=== PATIENT | male | born 1985 | race Caucasian/White ===

== ENCOUNTER 2016-11-14 12:56 | Emergency (ER) | payer OTHER, SELFPAY ==
[~2016-11-14] VITALS: Ht 182.9 cm; Wt 113.6 kg
[2016-11-14] MEDS ORDERED: CARB200T98 (13:07)
[2016-11-14] MEDS ORDERED: NS 1,000 ML IV ONE (14:00)
[2016-11-14 14:44] LABS: BASO % 0.3 % (0.0-1.0); EOS # 0.1 K/mm3 (0.0-0.50); EOS % 0.6 % (0.0-3.0); LARGE UNSTAINED CELL # 0.2 K/mm3 (0.0-0.4); LARGE UNSTAINED CELL % 1.3 % (0.0-4.0); LYMPH # 1.2 K/mm3 (1.5-4.5); LYMPH % 8.9 % (24.0-44.0); MEAN CORPUSCULAR HGB CONC 34.4 g/dl (32.0-36.5); MEAN CORPUSCULAR VOLUME 90.2 fl (80.0-96.0); MONO # 0.6 K/mm3 (0.0-0.8); MONO % 5.1 % (0.0-5.0); NEUTROPHILS # 10.1 K/mm3 (1.8-7.7); NEUTROPHILS % 83.8 % (36.0-66.0); PLATELET COUNT, AUTOMATED 254 k/mm3 (150-450); RED CELL DISTRIBUTION WIDTH 12.5 % (11.5-14.5)
--- NOTE | 2016-11-14 14:50 | REP ---
CHEST: Two views. COMPARISON: 11/22/2007 There is no evidence of acute infiltrate. No pleural effusion is seen. The heart is normal in size. The mediastinal silhouette is unremarkable. The visualized osseous structures are intact. IMPRESSION: No acute pulmonary disease. Signed by Milton Sarmiento MD 11/15/2016 05:10 P
--- NOTE | 2016-11-14 15:00 | ECGEPIP ---
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
[2016-11-14 15:06] LABS: ALBUMIN 4.3 GM/DL (3.2-5.2); ALBUMIN/GLOBULIN RATIO 1.39 (1.00-1.93); ALKALINE PHOSPHATASE 74 U/L (45-117); ALT/SGPT 40 U/L (12-78); ANION GAP 6 MEQ/L (8-16); AST/SGOT 16 U/L (15-37); BILIRUBIN,DIRECT < 0.1 MG/DL (0.0-0.2); BILIRUBIN,TOTAL 0.3 MG/DL (0.2-1.0); BLOOD UREA NITROGEN 14 MG/DL (7-18); CARBON DIOXIDE LEVEL 27 MEQ/L (21-32); CHLORIDE LEVEL 108 MEQ/L (98-107); CREATININE FOR GFR 0.88 MG/DL (0.70-1.30); GLOMERULAR FILTRATION RATE > 60.0 (>60); GLUCOSE, FASTING 118 MG/DL (70-105); MAGNESIUM LEVEL 1.7 MG/DL (1.8-2.4); PHOSPHORUS LEVEL 2.5 MG/DL (2.5-4.9); POTASSIUM SERUM 4.3 MEQ/L (3.5-5.1); SODIUM LEVEL 141 MEQ/L (136-145); TOTAL PROTEIN 7.4 GM/DL (6.4-8.2)
[2016-11-14 15:34] LABS: METHADONE URINE NEGATIVE (NEGATIVE)
[2016-11-14] MEDS ORDERED: MAGNESIUM OXIDE 400 MG TAB (MAG-OX) PO ONE (16:00)
[2016-11-14 16:16] VITALS: BP 140/74
== END 2016-11-14 16:22 | disposition home or self-care (01) ==
LOC: M ED 15:14
DX: R55 Syncope and collapse (principal); G40.909 Epilepsy, unspecified, not intractable, without status epilepticus; F17.200 Nicotine dependence, unspecified, uncomplicated; Z79.899 Other long term (current) drug therapy

== ENCOUNTER 2017-02-16 18:58 | Emergency (ER) | payer MEDICAID, OTHER, SELFPAY ==
[~2017-02-16] VITALS: Ht 180.3 cm; Wt 122.7 kg
[~2017-02-16 18:58] MED LIST: CARB200T98
[2017-02-16 20:10] LABS: ANION GAP 16 MEQ/L (8-16); BLOOD UREA NITROGEN 12 MG/DL (7-18); CARBAMAZEPINE (TEGRETOL) LEVEL 1.6 UG/ML (4.0-10.0); CARBON DIOXIDE LEVEL 18 MEQ/L (21-32); CHLORIDE LEVEL 111 MEQ/L (98-107); CREATININE FOR GFR 1.18 MG/DL (0.70-1.30); GLOMERULAR FILTRATION RATE > 60.0 (>60); GLUCOSE, FASTING 114 MG/DL (70-105); MAGNESIUM LEVEL 2.2 MG/DL (1.8-2.4); POTASSIUM SERUM 3.9 MEQ/L (3.5-5.1); SODIUM LEVEL 145 MEQ/L (136-145)
--- NOTE | 2017-02-16 20:10 | REPUSA ---
CT of the head Clinical history: seizure. Comparison: 11/22/2007. Technique: Multiple axial CT images were obtained through the head without administration of contrast . Findings: The ventricles and sulci are symmetric bilaterally. There is no evidence of acute hemorrhag e or infarct. There is no midline shift, mass effect, or extra-axial fluid collection. The osseous st ructures are unremarkable. The visualized paranasal sinuses and mastoid air cells are clear. Impression: Negative study.
[2017-02-16 20:19] LABS: BASO % 0.2 % (0.0-1.0); EOS # 0.2 K/mm3 (0.0-0.50); EOS % 1.5 % (0.0-3.0); LARGE UNSTAINED CELL # 0.2 K/mm3 (0.0-0.4); LARGE UNSTAINED CELL % 1.8 % (0.0-4.0); LYMPH # 2.3 K/mm3 (1.5-4.5); LYMPH % 21.1 % (24.0-44.0); MEAN CORPUSCULAR HGB CONC 35.2 g/dl (32.0-36.5); MEAN CORPUSCULAR VOLUME 90.9 fl (80.0-96.0); MONO # 0.6 K/mm3 (0.0-0.8); MONO % 5.3 % (0.0-5.0); NEUTROPHILS # 7.8 K/mm3 (1.8-7.7); NEUTROPHILS % 70.2 % (36.0-66.0); PLATELET COUNT, AUTOMATED 277 k/mm3 (150-450); RED CELL DISTRIBUTION WIDTH 12.5 % (11.5-14.5); WHITE BLOOD COUNT 11.1 K/mm3 (4.0-10.0)
[2017-02-16 21:41] VITALS: BP 160/79
== END 2017-02-16 22:02 | disposition home or self-care (01) ==
LOC: EDBD 18:58 → M ED 18:58
DX: G40.309 Generalized idiopathic epilepsy and epileptic syndromes, not intractable, without status epilepticus (principal); Z91.14 Patient's other noncompliance with medication regimen; Z79.899 Other long term (current) drug therapy
CPT/HCPCS: 70450; 80048; 80156; 83735; 85025; 99284; G0480

== ENCOUNTER 2018-08-26 14:42 | Emergency (ER) | payer MEDICAID, OTHER ==
[~2018-08-26] VITALS: Ht 177.8 cm; Wt 96.7 kg
[~2018-08-26 14:42] MED LIST changes: -CARB200T98; +CARB200T98 PO
[2018-08-26] MEDS ORDERED: NS 1,000 ML IV ONE (15:15)
[2018-08-26 15:17] LABS: BASO % 0.3 % (0.0-1.0); EOS # 0.2 10^3/uL (0.0-0.50); EOS % 1.9 % (0.0-3.0); HEMATOCRIT 45.7 % (42.0-52.0); HEMOGLOBIN 15.8 g/dl (13.5-17.5); LYMPH # 2.2 10^3/uL (1.5-4.5); LYMPH % 22.6 % (24.0-44.0); MEAN CORPUSCULAR HEMOGLOBIN 31.3 pg (27.0-33.0); MEAN CORPUSCULAR HGB CONC 34.6 g/dl (32.0-36.5); MEAN CORPUSCULAR VOLUME 90.7 fl (80.0-96.0); MONO # 0.9 10^3/uL (0.0-0.8); MONO % 9.7 % (0.0-5.0); NEUTROPHILS # 6.3 10^3/uL (1.8-7.7); NEUTROPHILS % 65.1 % (36.0-66.0); PLATELET COUNT, AUTOMATED 272 10^3/uL (150-450); RED BLOOD COUNT 5.04 10^6/uL (4.30-6.10); WHITE BLOOD COUNT 9.7 10^3/uL (4.0-10.0)
[2018-08-26 15:50] LABS: ALBUMIN 4.4 GM/DL (3.2-5.2); ALT/SGPT 32 U/L (12-78); BILIRUBIN,DIRECT < 0.1 MG/DL (0.0-0.2); BILIRUBIN,TOTAL 0.3 MG/DL (0.2-1.0); BLOOD UREA NITROGEN 18 MG/DL (7-18); CALCIUM LEVEL 9.3 MG/DL (8.5-10.1); CARBAMAZEPINE (TEGRETOL) LEVEL 1.5 UG/ML (4.0-10.0); CARBON DIOXIDE LEVEL 24 MEQ/L (21-32); CHLORIDE LEVEL 106 MEQ/L (98-107); CPK CREATINE PHOSPHOKINASE 285 U/L (39-308); CREATININE FOR GFR 1.25 MG/DL (0.70-1.30); ETHYL ALCOHOL (ETHANOL) < 0.003 % (0.000-0.010); GLOMERULAR FILTRATION RATE > 60.0 (>60); GLUCOSE, FASTING 95 MG/DL (70-100); MB/CK RELATIVE INDEX 1.16 (< OR =4); POTASSIUM SERUM 4.1 MEQ/L (3.5-5.1); SODIUM LEVEL 142 MEQ/L (136-145); TOTAL PROTEIN 7.5 GM/DL (6.4-8.2); TROPONIN I < 0.02 NG/ML (< 0.10)
[2018-08-26] MEDS ORDERED: carBAMazepine XR 200 MG TAB PO ONE (16:45)
[2018-08-26] MEDS ORDERED: carBAMazepine 200 MG TAB PO ONE (16:45)
[2018-08-26 16:55] VITALS: BP 172/81
== END 2018-08-26 16:55 | disposition home or self-care (01) ==
LOC: M ED 14:42
DX: G40.309 Generalized idiopathic epilepsy and epileptic syndromes, not intractable, without status epilepticus (principal)
CPT/HCPCS: 80048; 80076; 80156; 82550; 82553; 83605; 84443; 85025; 93041; 94760; 96360; 99284; G0480

== ENCOUNTER 2018-10-30 07:26 | Emergency (ER) | payer OTHER ==
[2018-10-30] MEDS ORDERED: CARB20TAXR PO (07:37)
[2018-10-30] MEDS ORDERED: CARB200C4 PO (07:37)
[2018-10-30] MEDS ORDERED: carBAMazepine XR 200 MG TAB PO ONE (07:45)
--- NOTE | 2018-10-30 08:06 | REPVR ---
EXAM: CT Head Without Contrast EXAM DATE/TIME: 10/30/2018 7:36 AM CLINICAL HISTORY: 33 years old, male; Injury or trauma; Injury history: Post seizure; Initial encounter; Blunt trauma (contusions or hematomas); Additional info: Head injury post sz TECHNIQUE: Imaging protocol: Axial computed tomography images of the head without contrast. Radiation optimization: All CT scans at this facility use at least one of these dose optimization techniques: automated exposure control; mA and/or kV adjustment per patient size (includes targeted exams where dose is matched to clinical indication); or iterative reconstruction. COMPARISON: CT Head without contrast 02/16/2017 7:54 PM FINDINGS: Brain: The cortical/white matter interfaces are preserved throughout the brain. There is no evidence of intracranial hemorrhage. No parenchymal mass lesions are identified. Ventricles: The ventricular system is normal in size and configuration. Bones/joints: No acute fractures of the skull are identified. Sinuses: The visualized paranasal sinuses are clear. Mastoid air cells: The mastoid air cells are clear. Soft tissues: Mild superficial soft tissue infiltration is seen in the posterior midline, probably a small soft tissue contusion/hematoma. IMPRESSION: 1. Normal appearance of the brain. 2. Soft tissue infiltration in the posterior midline, likely a small superficial hematoma/contusion. Electronically signed by: Maya Little On 10/30/2018 08:05:55 AM
--- NOTE | 2018-10-30 08:11 | REPVR ---
EXAM: CT Cervical Spine Without Contrast EXAM DATE/TIME: 10/30/2018 7:36 AM CLINICAL HISTORY: 33 years old, male; Injury or trauma; Injury history: Post seizure; Initial encounter; Blunt trauma; Additional info: Head injury post sz TECHNIQUE: Imaging protocol: Axial computed tomography images of the cervical spine without contrast. Coronal and sagittal reformatted images were created and reviewed. Radiation optimization: All CT scans at this facility use at least one of these dose optimization techniques: automated exposure control; mA and/or kV adjustment per patient size (includes targeted exams where dose is matched to clinical indication); or iterative reconstruction. COMPARISON: No relevant prior studies available. FINDINGS: Vertebrae: There is a minimal rightward convex curvature of the cervical spine. No subluxations are identified. No acute fractures are seen. Small endplate spurs and mild uncovertebral ridging are present at multiple levels in the cervical spine. Discs/Spinal canal/Neural foramina: No significant spinal canal stenosis is seen. Prevertebral Space: The prevertebral soft tissues appear normal. Soft tissues: The paraspinous soft tissues appear unremarkable. Lungs: The visualized lungs are grossly clear. IMPRESSION: 1. No fractures or subluxations identified. 2. Mild degenerative changes. No significant spinal canal stenosis. Electronically signed by: Maya Little On 10/30/2018 08:11:07 AM
[2018-10-30] MEDS ORDERED: ADACEL/BOOSTRIX VACCINE (DIPHTH/PERTUSS/ACELL/TETANUS)0.5ML SYR (90715) IM ONE (08:15)
[2018-10-30] MEDS ORDERED: NS 1,000 ML IV ONE (08:15)
--- NOTE | 2018-10-30 08:21 | REP ---
LEFT ELBOW, FOUR VIEWS: There is no evidence of an acute fracture, dislocation or intrinsic bone disease. IMPRESSION: No fracture or dislocation. Electronically Signed by Milton Sarmiento MD 11/03/2018 01:39 P
--- NOTE | 2018-10-30 08:21 | REP ---
LEFT SHOULDER, THREE VIEWS: SHOULDER: There is no evidence of an acute fracture, dislocation or intrinsic bone disease. IMPRESSION: No fracture or dislocation. Electronically Signed by Milton Sarmiento MD 11/03/2018 01:39 P
[2018-10-30 08:23] LABS: BASO % 0.3 % (0.0-1.0); EOS % 0.3 % (0.0-3.0); HEMATOCRIT 45.1 % (42.0-52.0); HEMOGLOBIN 15.5 g/dl (13.5-17.5); LYMPH # 1.1 10^3/uL (1.5-4.5); LYMPH % 9.4 % (24.0-44.0); MEAN CORPUSCULAR HEMOGLOBIN 31.4 pg (27.0-33.0); MEAN CORPUSCULAR HGB CONC 34.4 g/dl (32.0-36.5); MEAN CORPUSCULAR VOLUME 91.5 fl (80.0-96.0); MONO # 0.9 10^3/uL (0.0-0.8); NEUTROPHILS % 82.7 % (36.0-66.0); PLATELET COUNT, AUTOMATED 260 10^3/uL (150-450); RED BLOOD COUNT 4.93 10^6/uL (4.30-6.10); WHITE BLOOD COUNT 12.1 10^3/uL (4.0-10.0)
--- NOTE | 2018-10-30 08:28 | REP ---
LEFT HAND, FOUR VIEWS: There is no evidence of an acute fracture, dislocation or intrinsic bone disease. IMPRESSION: No fracture or dislocation. Electronically Signed by Milton Sarmiento MD 11/03/2018 01:40 P
[2018-10-30 08:51] LABS: BLOOD UREA NITROGEN 18 MG/DL (7-18); CALCIUM LEVEL 9.2 MG/DL (8.5-10.1); CARBAMAZEPINE (TEGRETOL) LEVEL 4.9 UG/ML (4.0-10.0); CARBON DIOXIDE LEVEL 26 MEQ/L (21-32); CHLORIDE LEVEL 106 MEQ/L (98-107); CREATININE FOR GFR 0.89 MG/DL (0.70-1.30); GLOMERULAR FILTRATION RATE > 60.0 (>60); GLUCOSE, FASTING 94 MG/DL (70-100); POTASSIUM SERUM 4.5 MEQ/L (3.5-5.1); SODIUM LEVEL 138 MEQ/L (136-145)
[2018-10-30] MEDS ORDERED: IBUPROFEN 600 MG TAB PO ONE (09:15)
[2018-10-30 09:30] VITALS: BP 119/72
== END 2018-10-30 10:21 | disposition home or self-care (01) ==
LOC: M ED 07:26 → EDBD 07:26 → M ED 10:21
DX: R56.9 Unspecified convulsions (principal); S09.90XA Unspecified injury of head, initial encounter; S40.012A Contusion of left shoulder, initial encounter; S60.222A Contusion of left hand, initial encounter; S40.022A Contusion of left upper arm, initial encounter; X58.XXXA Exposure to other specified factors, initial encounter; Y92.9 Unspecified place or not applicable; Y93.9 Activity, unspecified; Y99.9 Unspecified external cause status; R55 Syncope and collapse; R25.1 Tremor, unspecified; Z87.820 Personal history of traumatic brain injury; Z72.0 Tobacco use; Z79.899 Other long term (current) drug therapy

== ENCOUNTER 2019-07-16 04:15 | Inpatient (IN) | payer OTHER ==
[~2019-07-16] VITALS: Ht 180.3 cm; Wt 100.8 kg
[~2019-07-16 04:15] MED LIST changes: +CARB200C4 PO; +CARB20TAXR PO
[2019-07-16] MEDS ORDERED: carBAMazepine 200 MG TAB PO ONE ×2 (04:30→06:00)
[2019-07-16] MEDS ORDERED: LEVE500T5 PO (04:55)
[2019-07-16 05:07] LABS: BASO % 0.2 % (0.0-1.0); HEMOGLOBIN 16.7 g/dl (13.5-17.5); LYMPH # 0.8 10^3/uL (1.5-5.0); LYMPH % 3.1 % (24.0-44.0); MEAN CORPUSCULAR HEMOGLOBIN 29.9 pg (27.0-33.0); MEAN CORPUSCULAR HGB CONC 32.7 g/dl (32.0-36.5); MEAN CORPUSCULAR VOLUME 91.2 fl (80.0-96.0); MONO # 1.7 10^3/uL (0.0-0.8); MONO % 6.9 % (0.0-5.0); NEUTROPHILS # 22.6 10^3/uL (1.5-8.5); NEUTROPHILS % 89.4 % (36.0-66.0); PLATELET COUNT, AUTOMATED 296 10^3/uL (150-450); RED BLOOD COUNT 5.59 10^6/uL (4.30-6.10); WHITE BLOOD COUNT 25.2 10^3/uL (4.0-10.0)
[2019-07-16] MEDS ORDERED: levETIRAcetam INJection 750 MG in D5W 100 ML IV ONE (05:45)
[2019-07-16 05:49] LABS: ALBUMIN 4.7 GM/DL (3.2-5.2); ALT/SGPT 64 U/L (12-78); BILIRUBIN,DIRECT 0.1 MG/DL (0.0-0.2); BILIRUBIN,TOTAL 0.3 MG/DL (0.2-1.0); BLOOD UREA NITROGEN 17 MG/DL (7-18); CARBAMAZEPINE (TEGRETOL) LEVEL 2.3 UG/ML (4.0-10.0); CARBON DIOXIDE LEVEL 30 MEQ/L (21-32); CHLORIDE LEVEL 100 MEQ/L (98-107); CREATININE FOR GFR 1.22 MG/DL (0.70-1.30); GLOMERULAR FILTRATION RATE > 60.0 (>60); GLUCOSE, FASTING 161 MG/DL (70-100); SODIUM LEVEL 138 MEQ/L (136-145); TOTAL PROTEIN 8.1 GM/DL (6.4-8.2)
[2019-07-16] MEDS ORDERED: ACETAMINOPHEN 325 MG SUPP PR ONE (06:45)
[2019-07-16] MEDS ORDERED: ACETAMINOPHEN 650 MG SUPP PR ONE (06:45)
[2019-07-16 07:01] LABS: CPK CREATINE PHOSPHOKINASE 412 U/L (39-308)
--- NOTE | 2019-07-16 07:09 | REPVR ---
PROCEDURE INFORMATION: Exam: CT Head Without Contrast Exam date and time: 07/16/2019 6:41 AM Age: 33 years old Clinical indication: Altered mental status/memory loss; Confusion or disorientation; Patient HX: Seizure; Additional info: AMS TECHNIQUE: Imaging protocol: Computed tomography of the head without contrast. Radiation optimization: All CT scans at this facility use at least one of these dose optimization techniques: automated exposure control; mA and/or kV adjustment per patient size (includes targeted exams where dose is matched to clinical indication); or iterative reconstruction. COMPARISON: CT Head without contrast 10/30/2018 7:39 AM FINDINGS: Brain: Normal. No hemorrhage. Unremarkable white matter. No mass effect. Ventricles: Normal. No ventriculomegaly. Bones/joints: Unremarkable. No acute fracture. Sinuses: Visualized sinuses are unremarkable. No fluid levels. Mastoid air cells: Visualized mastoid air cells are well aerated. Soft tissues: Unremarkable. IMPRESSION: No acute intracranial abnormality. Electronically signed by: Héctor Rey On 07/16/2019 07:09:15 AM
[2019-07-16] MEDS ORDERED: ACETAMINOPHEN 325 MG TAB As Ordered ONE (07:13)
[2019-07-16] MEDS: NS 1,000 ML IV ONE ×2 (07:22→07:32)
[2019-07-16] MEDS ORDERED: ONDANSETRON 4MG/2ML VIAL (J2405) As Ordered ONE (07:26)
[2019-07-16] MEDS ORDERED: ACETAMINOPHEN 325 MG TAB PO ONE (07:30)
[2019-07-16] MEDS ORDERED: ONDANSETRON 4MG/2ML VIAL (J2405) IV ONE (07:30)
[2019-07-16] MEDS ORDERED: NS 1,000 ML IV ONE ×2 (07:30→08:30)
--- NOTE | 2019-07-16 08:07 | REP ---
Portable chest x-ray: Single view. History: Fever. Comparison study: November 14 1016. Findings: Monitoring electrodes are seen overlying the chest. Lungs are symmetrically aerated and clear. Pleural angles are sharp. Heart size is normal. Pulmonary vasculature is not increased. No significant bony abnormality. Impression: No active disease. Electronically Signed by Levy Bridges MD 07/16/2019 07:59 A
[2019-07-16] MEDS ORDERED: IBUPROFEN 800 MG TAB PO ONE (08:15)
[2019-07-16 08:41] LABS: INFLUENZA A AMPLIFICATION NEGATIVE (NEGATIVE); INFLUENZA B AMPLIFICATION NEGATIVE (NEGATIVE)
[2019-07-16 10:52] LABS: BASO % 0.1 % (0.0-1.0); HEMATOCRIT 45.4 % (42.0-52.0); HEMOGLOBIN 15.5 g/dl (13.5-17.5); LYMPH # 0.8 10^3/uL (1.5-5.0); LYMPH % 3.9 % (24.0-44.0); MEAN CORPUSCULAR HEMOGLOBIN 31.4 pg (27.0-33.0); MEAN CORPUSCULAR HGB CONC 34.1 g/dl (32.0-36.5); MEAN CORPUSCULAR VOLUME 92.1 fl (80.0-96.0); MONO # 1.5 10^3/uL (0.0-0.8); MONO % 7.3 % (0.0-5.0); NEUTROPHILS # 17.9 10^3/uL (1.5-8.5); NEUTROPHILS % 88.1 % (36.0-66.0); PLATELET COUNT, AUTOMATED 240 10^3/uL (150-450); RED BLOOD COUNT 4.93 10^6/uL (4.30-6.10); WHITE BLOOD COUNT 20.3 10^3/uL (4.0-10.0)
[2019-07-16] MEDS ORDERED: MAGN50TA PO (13:10)
[2019-07-16] MEDS ORDERED: KEPP1TAB PO (13:10)
--- NOTE | 2019-07-16 14:22 | HPEPDOC ---
[facility] Medical History & Physical Date of Admission Jul 16, 2019 Date of Service: Jul 16, 2019 Attending Physician: CONCETTA SUE MD History and Physical CHIEF COMPLAINT: Seizure HISTORY OF PRESENT ILLNESS: 33-year-old male with past medical history of seizure disorder, presents from home with seizures 2. Patient is alert and oriented 3, but unable to provide any history at this time as he reportedly does not remember anything. Information obtained from ED staff and go from a bedside, reportedly patient was well up until noon yesterday. Patient's girlfriend returned at 8 PM and found the patient confused and had urinated on himself. She then witnessed the patient having a grand mal seizure at 3 AM and brought him to the hospital. Patient has remained confused about his current situation since presented to the emergency department. Patient is resting comfortably in bed, without any complaints, denies any headache, dizziness, vision disturbance, shortness of breath, chest pain, nausea, vomiting, abdominal pain, diarrhea, myalgias or arthralgias. Patient's workup is consistent with medication noncompliance as carbamazepine levels are low. Reportedly patient's last seizure was in February of last year, saw his neurologist in March and Keppra was added to his regimen, had a normal MRI and EEG at that time. 10 point review of system is negative except for above PAST MEDICAL HISTORY: 1. Seizure disorder. PAST SURGICAL HISTORY: 1. None. SOCIAL HISTORY: Previous smoker. Denies alcohol use. Denies drug use FAMILY HISTORY: Positive for heart disease ALLERGIES: Please see below. HOME MEDICATIONS: Please see below. PHYSICAL EXAMINATION: VITAL SIGNS: Please see below. GENERAL: No distress HEENT: Normocephalic, atraumatic, moist mucous membranes NECK: Supple CARDIOVASCULAR EXAMINATION: S1, S2, no murmurs RESPIRATORY EXAMINATION: Clear to auscultation, no wheezing ABDOMINAL EXAMINATION: Soft, nontender, nondistended, positive bowel sounds EXTREMITIES: Range of motion intact SKIN: No rash NEUROLOGICAL EXAMINATION: Alert and oriented 3, no focal deficits PSYCHIATRIC EXAMINATION: Calm and cooperative LABORATORY DATA: See below. IMAGING: CT head negative for acute pathology MICROBIOLOGY: Please see below. ASSESSMENT: 33-year-old male with past medical history of seizure disorder, presents with seizure, likely due to noncompliance. . PLAN: 1. Seizure. Carbamazepine level is low, Keppra levels pending, received carbamazepine and Keppra in the ED, will continue these meds. Patient spiked a fever and has elevated white count in the ED, likely related to seizure, no clinical or other signs suggestive of ongoing infection. Blood cultures drawn, pro-calcitonin ordered, hold off on antibiotics for now. Admitting for observation overnight as family believes patient's not at his baseline. Vital Signs Vital Signs Date Time Temp Pulse Resp B/P (MAP) Pulse Ox O2 Delivery O2 Flow Rate FiO2 07/16/19 13:38 98.6 75 92 120/54 (76) 19 Room Air Laboratory Data Labs 24H Laboratory Tests 2 07/16/19 04:20: Lactic Acid Level 3.6*H 07/16/19 04:52: Immature Granulocyte % (Auto) 0.4, Neutrophils (%) (Auto) 89.4H, Lymphocytes (%) (Auto) 3.1L, Monocytes (%) (Auto) 6.9H, Eosinophils (%) (Auto) 0.0, Basophils (%) (Auto) 0.2, Neutrophils # (Auto) 22.6H, Lymphocytes # (Auto) 0.8L, Monocytes # (Auto) 1.7H, Eosinophils # (Auto) 0.0, Basophils # (Auto) 0.0, Nucleated Red Blood Cells % (auto) 0.0, Anion Gap 8, Glomerular Filtration Rate > 60.0, Calcium Level 9.0, Total Bilirubin 0.3, Direct Bilirubin 0.1, Aspartate Amino Transf (AST/SGOT) 27, Alanine Aminotransferase (ALT/SGPT) 64, Alkaline Phosphatase 89, Total Creatine Kinase 412H, Total Protein 8.1, Albumin 4.7, Albumin/Globulin Ratio 1.38, Thyroid Stimulating Hormone (TSH) 1.200, Carbamazepine (Tegretol) Level 2.3L 07/16/19 05:11: Bedside Glucose (Misc Panel) 187H 07/16/19 05:14: Bedside Glucose (Misc Panel) 178H 07/16/19 07:47: Influenza Type A (RT-PCR) NEGATIVE, Influenza Type B (RT-PCR) NEGATIVE 07/16/19 10:36: Immature Granulocyte % (Auto) 0.6, Neutrophils (%) (Auto) 88.1H, Lymphocytes (%) (Auto) 3.9L, Monocytes (%) (Auto) 7.3H, Eosinophils (%) (Auto) 0.0, Basophils (%) (Auto) 0.1, Neutrophils # (Auto) 17.9H, Lymphocytes # (Auto) 0.8L, Monocytes # (Auto) 1.5H, Eosinophils # (Auto) 0.0, Basophils # (Auto) 0.0, Nucleated Red Blood Cells % (auto) 0.0, Lactic Acid Followup at 4 Hours 1.1 07/16/19 13:55: CBC/BMP Laboratory Tests 07/16/19 04:52 07/16/19 10:36 Microbiology Microbiology 07/16/19 Blood Culture, Received Pending 07/16/19 Blood Culture, Received Pending Home Medications Scheduled Carbamazepine (Carbamazepine ER) 200 Mg Cpmp.12hr, 400 MG PO QAM Carbamazepine (Carbamazepine ER) 200 Mg Tab.er.12h, 600 MG PO QHS Levetiracetam (Keppra) 500 Mg Tablet, 1,000 MG PO QHS levETIRAcetam (levETIRAcetam) 500 Mg Tablet, 750 MG PO QAM Scheduled PRN Magnesium Gluconate (Mag-G) 27 Mg Tablet, 1,500 MG PO DAILY PRN for HEADACHE Allergies Coded Allergies: No Known Allergies (Verified , 11/30/02) A-FIB/CHADSVASC A-FIB History Current/History of A-Fib/PAF?: No CONCETTA SUE MD Jul 16, 2019 14:22
[2019-07-16 14:42] LABS: ACETAMINOPHEN LEVEL < 2.0 UG/ML (10.0-30.0); ETHYL ALCOHOL (ETHANOL) < 0.003 % (0.000-0.010); SALICYLATE LEVEL < 1.7 MG/DL (5.0-30.0)
[2019-07-16 14:57] LABS: OSMOLALITY SERUM 292 MOSM/KG (275-295)
[2019-07-16] MEDS: NS 1,000 ML IV SCH (15:58)
[2019-07-16 16:00] VITALS: BP 115/65
[2019-07-16 16:10] LABS: AMPHETAMINES LEVEL URINE NEGATIVE (NEGATIVE); BARBITURATES URINE NEGATIVE (NEGATIVE); BENZODIAZEPINES URINE NEGATIVE (NEGATIVE); CANNABINOIDS URINE POSITIVE (NEGATIVE); COCAINE METABOLITE URINE NEGATIVE (NEGATIVE); METHADONE URINE NEGATIVE (NEGATIVE); OPIATES URINE NEGATIVE (NEGATIVE); PHENCYCLIDINE URINE NEGATIVE (NEGATIVE)
--- NOTE | 2019-07-16 18:36 | ECGEPIP ---
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
[2019-07-16] MEDS: carBAMazepine XR 200 MG TAB PO SCH (20:11)
[2019-07-16] MEDS: levETIRAcetam 250MG TABLET (KEPPRA) PO SCH (20:12)
[2019-07-16 20:13] VITALS: BP 142/75
[2019-07-17] MEDS: NS 1,000 ML IV SCH ×3 (01:53→21:21)
[2019-07-17 06:00] VITALS: BP 139/73
[2019-07-17 08:09] LABS: HEMATOCRIT 44.9 % (42.0-52.0); MEAN CORPUSCULAR HEMOGLOBIN 30.5 pg (27.0-33.0); MEAN CORPUSCULAR HGB CONC 33.4 g/dl (32.0-36.5); MEAN CORPUSCULAR VOLUME 91.3 fl (80.0-96.0); PLATELET COUNT, AUTOMATED 236 10^3/uL (150-450); RED BLOOD COUNT 4.92 10^6/uL (4.30-6.10); WHITE BLOOD COUNT 24.1 10^3/uL (4.0-10.0)
[2019-07-17 08:37] LABS: ALBUMIN 3.8 GM/DL (3.2-5.2); ALT/SGPT 37 U/L (12-78); BILIRUBIN,TOTAL 0.5 MG/DL (0.2-1.0); BLOOD UREA NITROGEN 13 MG/DL (7-18); CALCIUM LEVEL 8.5 MG/DL (8.5-10.1); CARBON DIOXIDE LEVEL 30 MEQ/L (21-32); CHLORIDE LEVEL 105 MEQ/L (98-107); CREATININE FOR GFR 0.76 MG/DL (0.70-1.30); GLOMERULAR FILTRATION RATE > 60.0 (>60); GLUCOSE, FASTING 130 MG/DL (70-100); MAGNESIUM LEVEL 1.7 MG/DL (1.8-2.4); POTASSIUM SERUM 3.6 MEQ/L (3.5-5.1); SODIUM LEVEL 140 MEQ/L (136-145); TOTAL PROTEIN 6.9 GM/DL (6.4-8.2)
[2019-07-17] MEDS: levETIRAcetam 250MG TABLET (KEPPRA) PO SCH ×2 (08:59→21:21)
[2019-07-17] MEDS: carBAMazepine XR 200 MG TAB PO SCH ×2 (09:00→21:21)
[2019-07-17] MEDS ORDERED: cefTRIAXone SOD 2 GM in D5W MINI-BAG PLUS 50 ML IV SCH (09:00)
[2019-07-17] MEDS ORDERED: POTASSIUM CHLORIDE 10 MEQ SR TABLET PO ONE (09:45)
--- NOTE | 2019-07-17 10:59 | PHACANCOPD ---
PHARMACY VANCOMYCIN DOSING Pt Demographics Demographics Patient Age:33 , Weight:100.800 , Gender: male Adjusted Body Weight Date: 07/17/19, Adjusted Body Weight: Kg Events Past 24 Hours Events Past 24 Hours: YES: Fever, Elevation in WBC Vancomycin Vancomycin Target Ranges: 15-20 mcg/ml Vancomycin Load Y/N: Yes Load Dose Date Time Vancomycin Load Dose: 2GM Date: 07/17/19 Time: 1100 Vancomycin Dose Date: 07/17/19. Current Vancomycin Dose: [1 GM IV Q6H] Intermittent Dosing?: No Labs Labs Item Value Date Time White Blood Count 25.2 10^3/uL H 07/16/19 0452 White Blood Count 20.3 10^3/uL H 07/16/19 1036 White Blood Count 24.1 10^3/uL H 07/17/19 0747 Vital Signs Label Value Date Time Patient Temperature 100.5 degrees F 07/16/19 1600 Temperature Source Oral 07/16/191599 Patient Temperature 99.6 degrees F 07/16/192012 Temperature Source Oral 07/16/192012 Patient Temperature 99.7 degrees F 07/17/19 0600 Temperature Source Oral 07/17/19 0600 Micro Microbiology 07/16/19 Blood Culture - Preliminary, Resulted No growth after 24 hours . All specim... 07/16/19 Respiratory Virus Panel (PCR) (BATOOL) - Final, Complete 07/16/19 Blood Culture - Preliminary, Resulted Creatinine Clearance Date:07/17/19. Creatinine Clearance: . Assessment and Plan Maintaining Current Dose?: Yes Reason for dose change: No Dose Change Pharmacist Note Pharmacist Note Date: 07/17/19. Pharmacist note: Pharmacy consulted for dosing of Vancomycin for preliminary positive blood culture with a goal trough of 15-20 mcg/ml. The patient has no history of MRSA or Vanco here at [facility]. Patient has an elevated white count and was febrile yesterday. He is also being treated with Rocephin 2 GM q24h. We'll load him with 2 GM and follow with 1 GM IV q6h. Pharmacy will continue to monitor and make adjustments as needed. ERICA PEPPER PHARMACY Jul 17, 2019 10:59
[2019-07-17] MEDS ORDERED: VANCOMYCIN HCL 1,000 MG, VIAL MATE ADAPTER 1 EACH in D5W 250 ML IV ONE ×2 (11:00→12:00)
[2019-07-17] MEDS: MAG SULF 1GM/100ML (MAG RUN) 1 GM in IV 1 EA IV SCH ×2 (11:45→12:53)
[2019-07-17] MEDS: cefTRIAXone SOD 2 GM in D5W MINI-BAG PLUS 50 ML IV SCH (11:45)
[2019-07-17 14:00] VITALS: BP 141/90
[2019-07-17] MEDS: VANCOMYCIN HCL 1,000 MG, VIAL MATE ADAPTER 1 EACH in D5W 250 ML IV SCH ×2 (17:46→23:18)
--- NOTE | 2019-07-17 20:54 | IPNPDOC ---
Date Seen The patient was seen on 07/17/19. Progress Note HISTORY OF PRESENT ILLNESS: 33-year-old male with past medical history of seizure disorder, presents from home with seizures 2. Patient is alert and oriented 3, but unable to provide any history at this time as he reportedly does not remember anything. Information obtained from ED staff and go from a bedside, reportedly patient was well up until noon yesterday. Patient's girlfriend returned at 8 PM and found the patient confused and had urinated on himself. She then witnessed the patient having a grand mal seizure at 3 AM and brought him to the hospital. Patient has remained confused about his current situation since presented to the emergency department. Patient is resting comfortably in bed, without any complaints, denies any headache, dizziness, vision disturbance, shortness of breath, chest pain, nausea, vomiting, abdominal pain, diarrhea, myalgias or arthralgias. Patient's workup is consistent with medication noncompliance as carbamazepine levels are low. Reportedly patient's last seizure was in February of last year, saw his neurologist in March and Keppra was added to his regimen, had a normal MRI and EEG at that time. 07/17/19 Patient more alert and responsive in the morning, reportedly is having issues with short term memory, otherwise fully oriented and able to answer detailed/tertiary questions appropriately along with following commands. Febrile overnight, 1/2 cultures growing G+ cocci. No other complaints, denies SOB, CP, N/V or abdominal pain. Patient is having watery diarrhea. 10 point review of system is negative except for above PAST MEDICAL HISTORY: 1. Seizure disorder. PAST SURGICAL HISTORY: 1. None. SOCIAL HISTORY: Previous smoker. Denies alcohol use. Denies drug use FAMILY HISTORY: Positive for heart disease ALLERGIES: Please see below. HOME MEDICATIONS: Please see below. PHYSICAL EXAMINATION: VITAL SIGNS: Please see below. GENERAL: No distress HEENT: Normocephalic, atraumatic, moist mucous membranes NECK: Supple CARDIOVASCULAR EXAMINATION: S1, S2, no murmurs RESPIRATORY EXAMINATION: Clear to auscultation, no wheezing ABDOMINAL EXAMINATION: Soft, nontender, nondistended, positive bowel sounds EXTREMITIES: Range of motion intact SKIN: No rash NEUROLOGICAL EXAMINATION: Alert and oriented 3, no focal deficits PSYCHIATRIC EXAMINATION: Calm and cooperative LABORATORY DATA: See below. IMAGING: CT head negative for acute pathology MICROBIOLOGY: Please see below. ASSESSMENT: 33-year-old male with past medical history of seizure disorder, presents with seizure, likely due to noncompliance. PLAN: 1. Seizure. Carbamazepine level is low, no objective finding suggestive of ongoing active neurological issue, continue Keppra & Carbamazepine. Febrile, leukocytosis, having diarrhea & 1/2 blood cultures growing G+ cocci (?contamination), empiric Vanc/Ceftriaxone, TTE, repeat cultures tomorrow, GI panel. VS, I&O, 24H, Fishbone Vital Signs/I&O Vital Signs Date Time Temp Pulse Resp B/P (MAP) Pulse Ox O2 Delivery O2 Flow Rate FiO2 07/17/19 14:00 98.7 74 26 141/90 (107) 98 Room Air I&O- Last 24 Hours up to 6 AM 07/17/19 06:00 Intake Total 3270 ml Output Total 600 ml Balance 2670 ml Laboratory Data 24H LABS Laboratory Tests 2 07/17/19 07:47: Nucleated Red Blood Cells % (auto) 0.0, Anion Gap 5L, Glomerular Filtration Rate > 60.0, Calcium Level 8.5, Magnesium Level 1.7L, Total Bilirubin 0.5#, Aspartate Amino Transf (AST/SGOT) 15, Alanine Aminotransferase (ALT/SGPT) 37, Alkaline Phosphatase 68, Total Protein 6.9, Albumin 3.8, Albumin/Globulin Ratio 1.23 CBC/BMP Laboratory Tests 07/17/19 07:47 Microbiology Microbiology 07/16/19 Blood Culture - Preliminary, Resulted No growth after 24 hours . All specim... 07/16/19 Respiratory Virus Panel (PCR) (BATOOL) - Final, Complete 07/16/19 Blood Culture - Preliminary, Resulted CONCETTA SUE MD Jul 17, 2019 20:54
[2019-07-17 22:00] VITALS: BP 116/58
[2019-07-18] MEDS: VANCOMYCIN HCL 1,000 MG, VIAL MATE ADAPTER 1 EACH in D5W 250 ML IV SCH ×4 (05:08→22:33)
[2019-07-18 06:00] VITALS: BP 133/78
[2019-07-18 08:14] LABS: HEMATOCRIT 40.9 % (42.0-52.0); MEAN CORPUSCULAR HEMOGLOBIN 31.3 pg (27.0-33.0); MEAN CORPUSCULAR HGB CONC 34.2 g/dl (32.0-36.5); MEAN CORPUSCULAR VOLUME 91.5 fl (80.0-96.0); PLATELET COUNT, AUTOMATED 231 10^3/uL (150-450); RED BLOOD COUNT 4.47 10^6/uL (4.30-6.10); WHITE BLOOD COUNT 19.5 10^3/uL (4.0-10.0)
[2019-07-18 08:32] LABS: ALBUMIN 3.3 GM/DL (3.2-5.2); ALT/SGPT 31 U/L (12-78); BILIRUBIN,TOTAL 0.6 MG/DL (0.2-1.0); BLOOD UREA NITROGEN 10 MG/DL (7-18); CALCIUM LEVEL 8.2 MG/DL (8.5-10.1); CARBON DIOXIDE LEVEL 28 MEQ/L (21-32); CHLORIDE LEVEL 106 MEQ/L (98-107); CREATININE FOR GFR 0.77 MG/DL (0.70-1.30); GLOMERULAR FILTRATION RATE > 60.0 (>60); GLUCOSE, FASTING 131 MG/DL (70-100); PHOSPHORUS LEVEL 1.6 MG/DL (2.5-4.9); POTASSIUM SERUM 3.4 MEQ/L (3.5-5.1); SODIUM LEVEL 138 MEQ/L (136-145); TOTAL PROTEIN 6.3 GM/DL (6.4-8.2)
[2019-07-18] MEDS ORDERED: INFLUENZA QUADRIVALENT PF VACCINE 0.5ML SYRINGE (90686) IM ONE (09:00)
[2019-07-18] MEDS: levETIRAcetam 250MG TABLET (KEPPRA) PO SCH ×2 (10:35→20:55)
[2019-07-18] MEDS: cefTRIAXone SOD 2 GM in D5W MINI-BAG PLUS 50 ML IV SCH (10:35)
[2019-07-18] MEDS: carBAMazepine XR 200 MG TAB PO SCH ×2 (10:35→20:56)
[2019-07-18] MEDS: NS 1,000 ML IV SCH (10:35)
[2019-07-18] MEDS ORDERED: POTASSIUM CHLORIDE 10 MEQ SR TABLET PO ONE (13:00)
[2019-07-18 14:00] VITALS: BP 128/78
[2019-07-18] MEDS ORDERED: ACETAMINOPHEN TAB 650MG DOSE (2X325MG) PO PRN (14:45)
[2019-07-18] MEDS ORDERED: POTASSIUM PHOSPHATE INJ 30 MMOL in D5W 500 ML IV ONE (15:00)
--- NOTE | 2019-07-18 15:00 | ECHO ---
DATE OF PROCEDURE: 07/17/2019 DATE OF : 1985 AGE: 33 REFERRING PROVIDER: Dr. Castillo PATIENT LOCATION: Room 5145 REASON FOR THE ECHOCARDIOGRAM: Back pain. 2D MEASUREMENTS: IVS: 1.1 cm LV: 5.2 cm LVPW: 1.1 cm LA: 3.8 cm Aorta: 3.0 cm IVC: 2.1 cm DOPPLER MEASUREMENTS: Peak velocity across the aortic valve: 1.5 m/s Peak velocity across the LVOT: 0.97 m/s Peak gradient across the aortic valve: 9 mmHg Mean gradient across the aortic valve: 4 mmHg Mitral E: 0.94, Mitral A: 0.46 with a ratio of 2.0 2D COMMENTS: 1. Normal left ventricular size, wall thickness. Left ventricular systolic function is hyperdynamic with an estimated global left ventricular systolic ejection fraction is 65-70%. 2. Normal left atrium. Normal right atrium and right ventricle. 3. Normal aortic root. 4. No pericardial effusion seen. 5. The aortic valve, the mitral valve, the tricuspid valve and the pulmonic valve appear to be normal. The proximal pulmonary artery branches also appear to be normal in size. 7. The inferior vena cava was mildly enlarged. Central venous pressure is mildly elevated. DOPPLER: Trace tricuspid regurgitation and trace pulmonic regurgitation detected. Pulmonary artery systolic pressure is most likely normal. IMPRESSION: 1. Normal global left ventricular systolic function with a hyperdynamic left ventricle. The left ventricular diastolic function appeared to be normal. 2. Trivial aortic stenosis was noted but no aortic regurgitation. 3. Trace tricuspid regurgitation. Trace pulmonic regurgitation. 4. No vegetations detected in this transthoracic echocardiogram, consider a transesophageal echocardiogram if there is concern for endocarditis. MTDD
--- NOTE | 2019-07-18 18:25 | IPNPDOC ---
Date Seen The patient was seen on 07/18/19. Progress Note HISTORY OF PRESENT ILLNESS: 33-year-old male with past medical history of seizure disorder, presents from home with seizures 2. Patient is alert and oriented 3, but unable to provide any history at this time as he reportedly does not remember anything. Information obtained from ED staff and go from a bedside, reportedly patient was well up until noon yesterday. Patient's girlfriend returned at 8 PM and found the patient confused and had urinated on himself. She then witnessed the patient having a grand mal seizure at 3 AM and brought him to the hospital. Patient has remained confused about his current situation since presented to the emergency department. Patient is resting comfortably in bed, without any complaints, denies any headache, dizziness, vision disturbance, shortness of breath, chest pain, nausea, vomiting, abdominal pain, diarrhea, myalgias or arthralgias. Patient's workup is consistent with medication noncompliance as carbamazepine levels are low. Reportedly patient's last seizure was in February of last year, saw his neurologist in March and Keppra was added to his regimen, had a normal MRI and EEG at that time. 07/17/19 Patient more alert and responsive in the morning, reportedly is having issues with short term memory, otherwise fully oriented and able to answer detailed/tertiary questions appropriately along with following commands. Febrile overnight, 1/2 cultures growing G+ cocci. No other complaints, denies SOB, CP, N/V or abdominal pain. Patient is having watery diarrhea. 07/18/19 Patient more alert compared to yesterday, answering most questions appropriately, having difficulty with and long-term memory, no objective deficits appreciated. Patient febrile, no other complaints at this time. He denies any shortness of breath, chest pain, nausea, vomiting, headache, dizziness, diarrhea, constipation or abdominal pain. 10 point review of system is negative except for above PHYSICAL EXAMINATION: VITAL SIGNS: Please see below. GENERAL: No distress HEENT: Normocephalic, atraumatic, moist mucous membranes NECK: Supple CARDIOVASCULAR EXAMINATION: S1, S2, no murmurs RESPIRATORY EXAMINATION: Clear to auscultation, no wheezing ABDOMINAL EXAMINATION: Soft, nontender, nondistended, positive bowel sounds EXTREMITIES: Range of motion intact SKIN: No rash NEUROLOGICAL EXAMINATION: Alert and oriented 3, no focal deficits, short and long-term memory deficits noted on examination. PSYCHIATRIC EXAMINATION: Calm and cooperative LABORATORY DATA: See below. IMAGING: CT head negative for acute pathology MICROBIOLOGY: Please see below. ASSESSMENT: 33-year-old male with past medical history of seizure disorder, presents with seizure, likely due to noncompliance. PLAN: 1. Seizure. Carbamazepine level is low, history of noncompliance, continue Keppra & Carbamazepine. Patient displaying some short and long-term memory deficits, no objective neurological deficits appreciated, remains febrile, neurology consulted for further assistance. 2. Bacteremia. One out of 2 sets positive for gram-positive cocci, questionable contamination, patient remains febrile, leukocytosis, continue vancomycin and ceftriaxone, repeat blood cultures pending, TTE negative for vegetation, IV fluids discontinued. VS, I&O, 24H, Fishbone Vital Signs/I&O Vital Signs Date Time Temp Pulse Resp B/P (MAP) Pulse Ox O2 Delivery O2 Flow Rate FiO2 07/18/19 14:00 101.0 76 18 128/78 (95) 98 Room Air I&O- Last 24 Hours up to 6 AM 07/18/19 06:00 Intake Total 860 ml Balance 860 ml Laboratory Data 24H LABS Laboratory Tests 2 07/18/19 07:27: Nucleated Red Blood Cells % (auto) 0.0, Anion Gap 4L, Glomerular Filtration Rate > 60.0, Calcium Level 8.2L, Phosphorus Level 1.6L, Total Bilirubin 0.6, Aspartate Amino Transf (AST/SGOT) 10, Alanine Aminotransferase (ALT/SGPT) 31, Alkaline Phosphatase 73, Total Protein 6.3L, Albumin 3.3, Albumin/Globulin Ratio 1.10 07/18/19 09:57: Vancomycin Level Trough 10.2 CBC/BMP Laboratory Tests 07/18/19 07:27 Microbiology Microbiology 07/18/19 Blood Culture, Received Pending 07/18/19 Blood Culture, Received Pending 07/16/19 Blood Culture - Preliminary, Resulted No Growth after 48 hours. All Specime... 07/16/19 Respiratory Virus Panel (PCR) (BATOOL) - Final, Complete 07/16/19 Blood Culture - Preliminary, Resulted CONCETTA SUE MD Jul 18, 2019 18:25
[2019-07-18 22:00] VITALS: BP 131/77
[2019-07-19] MEDS: VANCOMYCIN HCL 1,000 MG, VIAL MATE ADAPTER 1 EACH in D5W 250 ML IV SCH ×5 (05:30→23:19)
[2019-07-19 06:00] VITALS: BP 130/78
[2019-07-19] MEDS ORDERED: NS 1,000 ML IV ONE (06:30)
[2019-07-19 08:00] VITALS: BP 130/78
[2019-07-19 08:00] LABS: BLOOD UREA NITROGEN 11 MG/DL (7-18); CALCIUM LEVEL 8.3 MG/DL (8.5-10.1); CARBON DIOXIDE LEVEL 27 MEQ/L (21-32); CHLORIDE LEVEL 108 MEQ/L (98-107); CREATININE FOR GFR 0.71 MG/DL (0.70-1.30); GLOMERULAR FILTRATION RATE > 60.0 (>60); GLUCOSE, FASTING 123 MG/DL (70-100); POTASSIUM SERUM 3.4 MEQ/L (3.5-5.1); SODIUM LEVEL 141 MEQ/L (136-145)
[2019-07-19 08:17] LABS: HEMATOCRIT 41.9 % (42.0-52.0); HEMOGLOBIN 14.4 g/dl (13.5-17.5); MEAN CORPUSCULAR HEMOGLOBIN 30.9 pg (27.0-33.0); MEAN CORPUSCULAR HGB CONC 34.4 g/dl (32.0-36.5); MEAN CORPUSCULAR VOLUME 89.9 fl (80.0-96.0); PLATELET COUNT, AUTOMATED 240 10^3/uL (150-450); RED BLOOD COUNT 4.66 10^6/uL (4.30-6.10)
[2019-07-19] MEDS ORDERED: LORazepam 2 MG TAB PO PRN (08:45)
[2019-07-19] MEDS ORDERED: POTASSIUM CHLORIDE 10 MEQ SR TABLET PO ONE (11:00)
[2019-07-19] MEDS: FOLIC ACID 1 MG TAB PO SCH (11:29)
[2019-07-19] MEDS: MULTIVITAMINS/MINERALS THERAP 1 TAB PO SCH (11:29)
[2019-07-19] MEDS: levETIRAcetam 250MG TABLET (KEPPRA) PO SCH ×2 (11:30→20:45)
[2019-07-19] MEDS: THIAMINE 100 MG TAB PO SCH ×2 (11:30→20:45)
[2019-07-19] MEDS: NS 1,000 ML IV SCH ×2 (11:31→23:19)
[2019-07-19] MEDS: carBAMazepine XR 200 MG TAB PO SCH ×2 (11:31→20:45)
[2019-07-19] MEDS: cefTRIAXone SOD 2 GM in D5W MINI-BAG PLUS 50 ML IV SCH (11:32)
[2019-07-19 12:55] VITALS: BP 135/78
[2019-07-19 16:00] VITALS: BP 134/72
--- NOTE | 2019-07-19 19:29 | IPNPDOC ---
Date Seen The patient was seen on 07/19/19. Progress Note SUBJECTIVE: 33-year-old male with past medical history of seizure disorder, presents from home with seizures 2. Patient is alert and oriented 3, but unable to provide any history at this time as he reportedly does not remember anything. Information obtained from ED staff and go from a bedside, reportedly patient was well up until noon yesterday. Patient's girlfriend returned at 8 PM and found the patient confused and had urinated on himself. She then witnessed the patient having a grand mal seizure at 3 AM and brought him to the hospital. Patient has remained confused about his current situation since presented to the emergency department. Patient is resting comfortably in bed, without any complaints, denies any headache, dizziness, vision disturbance, shortness of breath, chest pain, nausea, vomiting, abdominal pain, diarrhea, myalgias or arthralgias. Patient's workup is consistent with medication noncompliance as carbamazepine levels are low. Reportedly patient's last seizure was in February of last year, saw his neurologist in March and Keppra was added to his regimen, had a normal MRI and EEG at that time. 07/17/19 Patient more alert and responsive in the morning, reportedly is having issues with short term memory, otherwise fully oriented and able to answer detailed/ tertiary questions appropriately along with following commands. Febrile overnight, 1/2 cultures growing G+ cocci. No other complaints, denies SOB, CP, N/V or abdominal pain. Patient is having watery diarrhea. 07/18/19 Patient more alert compared to yesterday, answering most questions appropriately, having difficulty with and long-term memory, no objective deficits appreciated. Patient febrile, no other complaints at this time. He denies any shortness of breath, chest pain, nausea, vomiting, headache, dizziness, diarrhea, constipation or abdominal pain. 07/19/19 Patient febrile overnight, seen in the morning, diaphoretic, continues to have issues with memory, no other neurological deficits, awaiting neuro eval. He denies any shortness of breath, chest pain, nausea, vomiting, abdominal pain or diarrhea. Patient is adamant about not taking any drugs (other than marijuana) or alcohol. 10 point review of system is negative except for above PHYSICAL EXAMINATION: VITAL SIGNS: Please see below. GENERAL: No distress HEENT: Normocephalic, atraumatic, moist mucous membranes NECK: Supple CARDIOVASCULAR EXAMINATION: S1, S2, no murmurs RESPIRATORY EXAMINATION: Clear to auscultation, no wheezing ABDOMINAL EXAMINATION: Soft, nontender, nondistended, positive bowel sounds EXTREMITIES: Range of motion intact SKIN: No rash NEUROLOGICAL EXAMINATION: Alert and oriented 3, no focal deficits PSYCHIATRIC EXAMINATION: Calm and cooperative LABORATORY DATA: See below. IMAGING: CT head negative for acute pathology MICROBIOLOGY: Please see below. ASSESSMENT: 33-year-old male with past medical history of seizure disorder, presents with seizure, likely due to noncompliance. PLAN: 1. Seizure. Carbamazepine level low, history of noncompliance, continue Keppra & Carbamazepine. Neurologist eval pending. 2. Bacteremia. One out of 2 sets positive, grew staph epi, likely contamination, patient remains febrile, leukocytosis, improving, continue empiric vancomycin and ceftriaxone, repeat blood cultures negative to date, TTE negative for vegetation, continue maintenance fluids. VS, I&O, 24H, Fishbone Vital Signs/I&O Vital Signs Date Time Temp Pulse Resp B/P (MAP) Pulse Ox O2 Delivery O2 Flow Rate FiO2 07/19/19 16:00 68 134/72 07/19/19 12:55 99.4 18 97 Room Air I&O- Last 24 Hours up to 6 AM 07/19/19 06:00 Intake Total 2580 ml Balance 2580 ml Laboratory Data 24H LABS Laboratory Tests 2 07/19/19 07:08: Anion Gap 6L, Glomerular Filtration Rate > 60.0, Calcium Level 8.3L, Thyroid Stimulating Hormone (TSH) 1.170 07/19/19 07:40: Nucleated Red Blood Cells % (auto) 0.0 CBC/BMP Laboratory Tests 07/19/19 07:08 07/19/19 07:40 Microbiology Microbiology 07/18/19 Blood Culture - Preliminary, Resulted No growth after 24 hours . All specim... 07/18/19 Blood Culture - Preliminary, Resulted No growth after 24 hours . All specim... 07/16/19 Blood Culture - Preliminary, Resulted No Growth after 72 hours. All specime... 07/16/19 Respiratory Virus Panel (PCR) (BATOOL) - Final, Complete 07/16/19 Blood Culture - Final, Complete Staphylococcus Epidermidis CONCETTA SUE MD Jul 19, 2019 19:29
--- NOTE | 2019-07-19 20:57 | CR ---
DATE OF CONSULTATION: 07/19/2019 REFERRING PHYSICIAN: Miladys Castillo MD REASON FOR CONSULTATION: Seizures and difficulty with short-term memory.. HISTORY OF PRESENT ILLNESS: John Moncada is a 33-year-old man with history of epilepsy since the year 1999 thought to be the result of his concussions. The patient follows with neurology at [facility]. He has generalized tonic-clonic seizure which lasts for 1-2 minutes with generalized shaking and postictal period for 15-20 minutes. In the past he had seizures mostly in sleep, but lately he started having seizures in daytime. He had 5 grand mal seizures in 2019 per history. In March 2019 he had another spell in which he was dazed and had facial blinking, tics and confusion lasting for 15 minutes. There was no shaking in these episodes. His MRI scan of brain and EEG, according to his fiancee, at [facility] were reportedly unremarkable. At that time, Keppra was added to his Tegretol. The patient admits forgetting doses of his medications. He is unable to specify how many doses he forgets per week. He was brought to [facility] Emergency Department due to two seizures. He was alone at home. His fiNeurosearch e was working. She came back home and found him confused and he had urinated on himself. He had another grand mal seizure around 3 a.m. He was brought to [facility] after his seizures. His Tegretol level was noted to be 2.3 only. The patient was found to have possible gram-positive bacteremia. He is on antibiotics. He denies any headaches, neck or back pain. He states that he has difficulty with short-term memory. This has happened since the seizure. He cannot remember anything for a few minutes. He denies any dysphagia, dysarthria, diplopia, urinary incontinence. 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 SOCIAL HISTORY: He denies smoking, alcohol or illicit drugs. FAMILY HISTORY: He has 3 siblings. There is a family history of heart disease. He has no children. No family history of seizures or epilepsy. REVIEW OF SYSTEMS: All systems were reviewed and were found to be noncontributory except as mentioned in history of present illness. ALLERGIES: No known drug allergies. HOME MEDICATIONS: - Tegretol 400 plus 600 mg daily - Keppra 1000 mg at night and 750 mg in the morning PHYSICAL EXAMINATION: Temperature 98.7, pulse 70, respiratory rate 18, blood pressure 130/78, 97% saturation on room air. Heart: Regular rate and rhythm. Lungs: Clear to auscultation. Abdomen: Soft, nontender, nondistended. No pedal edema. No musculoskeletal abnormalities. No rash. No signs of meningeal irritation. No tremor. The patient is awake, alert, oriented to place, person, day, date, month, year, name of president, city, state, country. He is able to spell world backwards. He is able to do serial sevens. On recall testing he stated that he did not know any words. I encouraged him to try and he was able to recall one object out of three at 5 minutes. Extraocular muscles are intact. No facial weakness. Tongue and uvula are midline. No nystagmus. Visual bartholomew are full to confrontation. 5/5 strength in upper extremities. Deep tendon reflexes are 2+ throughout. Normal sensation throughout. Gait is normal. DIAGNOSTIC STUDIES: CT scan of head was unremarkable. WBCs were 13 and they decreased from 25.2. Tegretol level was 2.3. Urine was positive for cannabis. ASSESSMENT: 1. Suspected generalized or frontal lobe epilepsy. 2. Suspected generalized tonic-clonic and complex partial seizures. 3. Mild difficulty with anterograde / short-term memory. Memory difficulty may possibly be due to recurrent seizures. 4. Noncompliance with medications. PLAN: 1. Check vitamin B12, vitamin B1, TSH, etc. 2. Emphasized compliance with his medications. He will continue Tegretol 400 plus 600 mg a day and Keppra 750 plus 1000 mg a day. 3. He is aware that he should not be driving. 4. EEG. 5. The patient will follow with his neurologist at [facility].
[2019-07-19 22:00] VITALS: BP 140/66
[2019-07-20] MEDS: VANCOMYCIN HCL 1,000 MG, VIAL MATE ADAPTER 1 EACH in D5W 250 ML IV SCH (05:48)
[2019-07-20 06:00] VITALS: BP 132/69
[2019-07-20 06:52] LABS: HEMOGLOBIN 13.9 g/dl (13.5-17.5); MEAN CORPUSCULAR HEMOGLOBIN 30.8 pg (27.0-33.0); MEAN CORPUSCULAR HGB CONC 33.9 g/dl (32.0-36.5); MEAN CORPUSCULAR VOLUME 90.9 fl (80.0-96.0); PLATELET COUNT, AUTOMATED 244 10^3/uL (150-450); RED BLOOD COUNT 4.51 10^6/uL (4.30-6.10); WHITE BLOOD COUNT 9.5 10^3/uL (4.0-10.0)
[2019-07-20 06:54] VITALS: BP 132/69
[2019-07-20 07:17] LABS: BLOOD UREA NITROGEN 10 MG/DL (7-18); CALCIUM LEVEL 8.2 MG/DL (8.5-10.1); CARBON DIOXIDE LEVEL 28 MEQ/L (21-32); CHLORIDE LEVEL 108 MEQ/L (98-107); GLOMERULAR FILTRATION RATE > 60.0 (>60); GLUCOSE, FASTING 122 MG/DL (70-100); MAGNESIUM LEVEL 1.7 MG/DL (1.8-2.4); PHOSPHORUS LEVEL 3.3 MG/DL (2.5-4.9); POTASSIUM SERUM 3.5 MEQ/L (3.5-5.1); SODIUM LEVEL 142 MEQ/L (136-145)
[2019-07-20] MEDS ORDERED: POTASSIUM CHLORIDE 10 MEQ SR TABLET PO ONE (08:00)
[2019-07-20] MEDS: MAG SULF 1GM/100ML (MAG RUN) 1 GM in IV 1 EA IV SCH ×2 (08:22→09:28)
[2019-07-20] MEDS: THIAMINE 100 MG TAB PO SCH ×2 (08:23→20:46)
[2019-07-20] MEDS: FOLIC ACID 1 MG TAB PO SCH (08:23)
[2019-07-20] MEDS: levETIRAcetam 250MG TABLET (KEPPRA) PO SCH ×2 (08:23→20:47)
[2019-07-20] MEDS: MULTIVITAMINS/MINERALS THERAP 1 TAB PO SCH (08:24)
[2019-07-20] MEDS: carBAMazepine XR 200 MG TAB PO SCH ×2 (09:32→20:46)
[2019-07-20 09:54] LABS: VITAMIN B12 LEVEL 436 PG/ML (247-911)
[2019-07-20 14:58] VITALS: BP 142/85
--- NOTE | 2019-07-20 15:26 | IPNPDOC ---
Date Seen The patient was seen on 07/20/19. Progress Note SUBJECTIVE: 33-year-old male with past medical history of seizure disorder, presents from home with seizures 2. Patient is alert and oriented 3, but unable to provide any history at this time as he reportedly does not remember anything. Information obtained from ED staff and go from a bedside, reportedly patient was well up until noon yesterday. Patient's girlfriend returned at 8 PM and found the patient confused and had urinated on himself. She then witnessed the patient having a grand mal seizure at 3 AM and brought him to the hospital. Patient has remained confused about his current situation since presented to the emergency department. Patient is resting comfortably in bed, without any complaints, denies any headache, dizziness, vision disturbance, shortness of breath, chest pain, nausea, vomiting, abdominal pain, diarrhea, myalgias or arthralgias. Patient's workup is consistent with medication noncompliance as carbamazepine levels are low. Reportedly patient's last seizure was in February of last year, saw his neurologist in March and Keppra was added to his regimen, had a normal MRI and EEG at that time. 07/17/19 Patient more alert and responsive in the morning, reportedly is having issues with short term memory, otherwise fully oriented and able to answer detailed/ tertiary questions appropriately along with following commands. Febrile overnight, 1/2 cultures growing G+ cocci. No other complaints, denies SOB, CP, N/V or abdominal pain. Patient is having watery diarrhea. 07/18/19 Patient more alert compared to yesterday, answering most questions appropriately, having difficulty with and long-term memory, no objective deficits appreciated. Patient febrile, no other complaints at this time. He denies any shortness of breath, chest pain, nausea, vomiting, headache, dizziness, diarrhea, constipation or abdominal pain. 07/19/19 Patient febrile overnight, seen in the morning, diaphoretic, continues to have issues with memory, no other neurological deficits, awaiting neuro eval. He denies any shortness of breath, chest pain, nausea, vomiting, abdominal pain or diarrhea. Patient is adamant about not taking any drugs (other than marijuana) or alcohol. 10 point review of system is negative except for above PHYSICAL EXAMINATION: VITAL SIGNS: Please see below. GENERAL: No distress HEENT: Normocephalic, atraumatic, moist mucous membranes NECK: Supple CARDIOVASCULAR EXAMINATION: S1, S2, no murmurs RESPIRATORY EXAMINATION: Clear to auscultation, no wheezing ABDOMINAL EXAMINATION: Soft, nontender, nondistended, positive bowel sounds EXTREMITIES: Range of motion intact SKIN: No rash NEUROLOGICAL EXAMINATION: Alert and oriented 3, no focal deficits PSYCHIATRIC EXAMINATION: Calm and cooperative LABORATORY DATA: See below. IMAGING: CT head negative for acute pathology MICROBIOLOGY: Please see below. ASSESSMENT: 33-year-old male with past medical history of seizure disorder, presents with seizure, likely due to noncompliance. PLAN: 1. Encephalopathy with memory issues Possibly due to recurrent seizures leading to a prolonged postictal state, Carbamazepine level low upon presentation, history of noncompliance, continue Keppra & Carbamazepine. Neurologist reese appreciated 2. Bacteremia. One out of 2 sets positive, grew staph epi, likely contamination, patient afebrile for over 24 hours, leukocytosis, improving, improving, de-escalate antibiotics to Levaquin, repeat blood cultures negative to date, TTE negative for vegetation, continue maintenance fluids. VS, I&O, 24H, [facility] Vital Signs/I&O Vital Signs Date Time Temp Pulse Resp B/P (MAP) Pulse Ox O2 Delivery O2 Flow Rate FiO2 07/20/19 06:54 70 132/69 07/20/19 06:00 98.8 18 97 Room Air I&O- Last 24 Hours up to 6 AM 07/20/19 06:00 Intake Total 2060 ml Balance 2060 ml Laboratory Data 24H LABS Laboratory Tests 2 07/20/19 06:20: Nucleated Red Blood Cells % (auto) 0.0, Anion Gap 6L, Glomerular Filtration Rate > 60.0, Calcium Level 8.2L, Phosphorus Level 3.3#, Magnesium Level 1.7L CBC/BMP Laboratory Tests 07/20/19 06:20 Microbiology Microbiology 07/18/19 Blood Culture - Preliminary, Resulted No Growth after 48 hours. All Specime... 07/18/19 Blood Culture - Preliminary, Resulted No Growth after 48 hours. All Specime... 07/16/19 Blood Culture - Preliminary, Resulted No Growth after 72 hours. All specime... 07/16/19 Respiratory Virus Panel (PCR) (BATOOL) - Final, Complete 07/16/19 Blood Culture - Final, Complete Staphylococcus Epidermidis CONCETTA SUE MD Jul 20, 2019 15:26
[2019-07-20] MEDS ORDERED: LevoFLOXacin 750 MG TABLET PO SCH (18:00)
[2019-07-20 20:00] VITALS: BP 132/67
[2019-07-20 20:44] VITALS: BP 132/67
[2019-07-21 05:29] VITALS: BP 135/89
[2019-07-21 06:39] LABS: HEMATOCRIT 42.2 % (42.0-52.0); HEMOGLOBIN 14.4 g/dl (13.5-17.5); MEAN CORPUSCULAR HEMOGLOBIN 30.9 pg (27.0-33.0); MEAN CORPUSCULAR HGB CONC 34.1 g/dl (32.0-36.5); MEAN CORPUSCULAR VOLUME 90.6 fl (80.0-96.0); PLATELET COUNT, AUTOMATED 258 10^3/uL (150-450); RED BLOOD COUNT 4.66 10^6/uL (4.30-6.10); WHITE BLOOD COUNT 9.9 10^3/uL (4.0-10.0)
[2019-07-21 07:06] LABS: BLOOD UREA NITROGEN 11 MG/DL (7-18); CARBON DIOXIDE LEVEL 31 MEQ/L (21-32); CHLORIDE LEVEL 106 MEQ/L (98-107); CREATININE FOR GFR 0.86 MG/DL (0.70-1.30); GLOMERULAR FILTRATION RATE > 60.0 (>60); GLUCOSE, FASTING 97 MG/DL (70-100); MAGNESIUM LEVEL 1.9 MG/DL (1.8-2.4); POTASSIUM SERUM 3.9 MEQ/L (3.5-5.1); SODIUM LEVEL 141 MEQ/L (136-145)
[2019-07-21] MEDS: FOLIC ACID 1 MG TAB PO SCH (09:18)
[2019-07-21] MEDS: levETIRAcetam 250MG TABLET (KEPPRA) PO SCH (09:19)
[2019-07-21] MEDS: carBAMazepine XR 200 MG TAB PO SCH (09:19)
[2019-07-21] MEDS: MULTIVITAMINS/MINERALS THERAP 1 TAB PO SCH (09:20)
[2019-07-21] MEDS: THIAMINE 100 MG TAB PO SCH (09:20)
[2019-07-21 09:30] VITALS: BP 162/91
[2019-07-21 10:00] VITALS: BP 162/91
[2019-07-21 14:00] VITALS: BP 132/82
--- NOTE | 2019-07-21 20:59 | DS.PDOC ---
Discharge Summary General Date of Admission Jul 20, 2019 at 10:28 Date of Discharge 07/21/19 Attending Physician: CONCETTA SUE MD Discharge Summary PROCEDURES PERFORMED DURING STAY: None ADMITTING DIAGNOSES: 1. Seizure, prolonged post-ictal state, memory deficit DISCHARGE DIAGNOSES: 1. seizure, prolonged post-ictal state, memory deficit COMPLICATIONS/CHIEF COMPLAINT: Noncompliance With Medication Regimen,Seizure. 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 His anti-seizure medication levels were low, history of non-compliance, reports its due to his poor memory. Patient had a prolonged state of confusion, memory lapse & fever after admission. He was evaluated and symptoms were thought to be from prolonged/multiple unwitnessed seizures causing prolonged post-ictal state. Patient gradually improved throughout hospitalization and now at his baseline. 1 of 2 blood cultures were positive for staph epi, repeat cultures negative, was on empiric antibiotics, likely contamination. Patient is clinically and hemodynamically stable for discharge and outpatient follow up w/ Neurology & PCP. HOSPITAL COURSE: As above DISCHARGE MEDICATIONS: Please see below. ALLERGIES: Please see below. PHYSICAL EXAMINATION: VITAL SIGNS: Please see below. GENERAL: No distress HEENT: Normocephalic, atraumatic, moist mucous membranes NECK: Supple CARDIOVASCULAR EXAMINATION: S1, S2, no murmurs RESPIRATORY EXAMINATION: Clear to auscultation, no wheezing ABDOMINAL EXAMINATION: Soft, nontender, nondistended, positive bowel sounds EXTREMITIES: Range of motion intact SKIN: No rash NEUROLOGICAL EXAMINATION: Alert and oriented 3, no focal deficits PSYCHIATRIC EXAMINATION: Calm and cooperative LABORATORY DATA: Please see below. IMAGING: Ct head negative for acute pathology PROGNOSIS: fair ACTIVITY: As tolerated DIET: regular DISCHARGE PLAN: f/u with Neurologist & PCP in 1-2 weeks DISPOSITION: 01 Home, Self-Care. DISCHARGE INSTRUCTIONS: 1. As above DISCHARGE CONDITION: Stable TIME SPENT ON DISCHARGE: Greater than 25 minutes. Vital Signs/I&Os Vital Signs Date Time Temp Pulse Resp B/P (MAP) Pulse Ox O2 Delivery O2 Flow Rate FiO2 07/21/19 14:00 98.8 80 16 132/82 (99) 97 Room Air I&O- Last 24 Hours up to 6 AM 07/21/19 06:00 Intake Total 500 ml Output Total 0 ml Balance 500 ml Laboratory Data Labs 24H Laboratory Tests 2 07/21/19 06:19: Nucleated Red Blood Cells % (auto) 0.0, Anion Gap 4L, Glomerular Filtration Rate > 60.0, Calcium Level 9.0, Magnesium Level 1.9 CBC/BMP Laboratory Tests 07/21/19 06:19 Microbiology Microbiology 07/18/19 Blood Culture - Preliminary, Resulted No Growth after 72 hours. All specime... 07/18/19 Blood Culture - Preliminary, Resulted No Growth after 72 hours. All specime... 07/16/19 Blood Culture - Final, Complete NO GROWTH AFTER 5 DAYS 07/16/19 Respiratory Virus Panel (PCR) (BATOOL) - Final, Complete 07/16/19 Blood Culture - Final, Complete Staphylococcus Epidermidis Discharge Medications Scheduled Carbamazepine (Carbamazepine ER) 200 Mg Cpmp.12hr, 400 MG PO QAM, (Reported) Carbamazepine (Carbamazepine ER) 200 Mg Tab.er.12h, 600 MG PO QHS, (Reported) Levetiracetam (Keppra) 500 Mg Tablet, 1,000 MG PO QHS, (Reported) levETIRAcetam (levETIRAcetam) 500 Mg Tablet, 750 MG PO QAM, (Reported) Scheduled PRN Magnesium Gluconate (Mag-G) 27 Mg Tablet, 1,500 MG PO DAILY PRN for HEADACHE, (Reported) Allergies Coded Allergies: No Known Allergies (Verified , 11/30/02) CONCETTA SUE MD Jul 21, 2019 20:59
== END 2019-07-21 17:11 | disposition home or self-care (01) | DRG 53 ==
LOC: EDBD 04:15 → M ED 04:15 → M ED INP 04:16 → ENRESERV 14:35 → M MS5PR 15:32 → OBSVTOIN 07-20 10:28
PROVIDERS: ADMIT Internal Medicine; ATTEND Internal Medicine
DX: G40.409 Other generalized epilepsy and epileptic syndromes, not intractable, without status epilepticus (principal); G93.40 Encephalopathy, unspecified; Z91.14 Patient's other noncompliance with medication regimen; Z79.899 Other long term (current) drug therapy

== ENCOUNTER → 2021-05-01 | Outpatient (CLI) | payer OTHER ==
[~2021-05-01] MED LIST changes: +KEPP1TAB PO; +LEVE500T5 PO; +MAGN50TA PO
== END ==
LOC: M LABSMTC 13:18
PROVIDERS: ATTEND Pediatrics
DX: Z20.822 Contact with and (suspected) exposure to COVID-19 (principal)